=== PATIENT | female | born 1995 | race African-American/Black ===

== ENCOUNTER 2017-04-11 21:16 | Emergency (ER) | payer MEDICAID ==
[~2017-04-11] VITALS: Ht 167.6 cm; Wt 121.0 kg
[2017-04-11 21:24] VITALS: BP 134/78; PULSE 68; RESP 16; TEMP 98.8; O2SAT 99
[2017-04-11] MEDS ORDERED: AMOXICILLIN/CLAVULANATE K 875 MG TAB PO ONE ×2 (22:45)
[2017-04-11] MEDS ORDERED: AUGM875T3 PO ×2 (22:59)
--- NOTE | 2017-04-11 23:00 | PD ---
HPI Chief Complaint: ENT Complaint Time Seen by Provider: 22:17 Travel History International Travel<30 days: No Contact w/Intl Traveler<30days: No Traveled to known affect area: No History of Present Illness HPI 21-year-old female presents to emergency room complaints of sore throat and foreign body sensation for the past 3 days. Reports no fever/chills. Reports that she has been able to drink and eat like her normal self, denies any difficultly swallowing. Reports that she went to an urgent care center and was told that she had a sore throat due to a virus and was not given any antibiotics. Reports that she is not feeling any better and requests a second opinion. FORMERLY [facility], [facility] Past Medical History Immunizations Current: Yes Tetanus Vaccination: Unknown Influenza Vaccination: No ?: Unknown Social History Alcohol Use: No Tobacco Use: No Substance Use: No Allergies-Medications (Allergen,Severity, Reaction): Coded Allergies: No Known Allergies (Verified Allergy, Unknown, 04/11/17) Review of Systems General / Constitutional: No: Fever, Chills Eyes: No: Diploplia, Blurred Vision, Visual changes HENT: Positive: Sore Throat, No: Headaches, Neck Pain Cardiovascular: No: Chest Pain or Discomfort, Palpitations, Irregular Rhythm Respiratory: No: Cough, Shortness of Breath Gastrointestinal: No: Nausea, Vomiting, Diarrhea, Abdominal Pain, Constipation Genitourinary: No: Dysuria Musculoskeletal: No: Pain Skin: No Rash Neurologic: No: Weakness Psychiatric: No: Depression Endocrine: No: Polydipsia Hematologic/Lymphatic: No: Easy Bruising Physical Exam Narrative GENERAL: Well-nourished, well-developed patient. SKIN: Focused skin assessment warm/dry. HEAD: Normocephalic. EYES: No scleral icterus. No injection or drainage. THROAT: Patient with increased fullness to left tonsil, uvula midline and patent with no swelling, patient with no trismus or drooling NECK: Supple, trachea midline. No JVD or lymphadenopathy. CARDIOVASCULAR: Regular rate and rhythm without murmurs, gallops, or rubs. RESPIRATORY: Breath sounds equal bilaterally. No accessory muscle use. GASTROINTESTINAL: Abdomen soft, non-tender, nondistended. MUSCULOSKELETAL: No cyanosis, or edema. BACK: Nontender without obvious deformity. No CVA tenderness. Data Data Last Documented VS Vital Signs Date Time Temp Pulse Resp B/P (MAP) Pulse Ox O2 Delivery O2 Flow Rate FiO2 04/11/17 21:24 98.8 68 16 134/78 (96) 99 Room Air Orders Orders Amoxicil-Clavulanate (Augmentin) (04/11/17 22:45) MDM Medical Decision Making Medical Screen Exam Complete: Yes Emergency Medical Condition: Yes Medical Record Reviewed: Yes Interpretation(s) Vital Signs Date Time Temp Pulse Resp B/P (MAP) Pulse Ox O2 Delivery O2 Flow Rate FiO2 04/11/17 21:24 98.8 68 16 134/78 (96) 99 Room Air Differential Diagnosis Pharyngitis Narrative Course Patient with sore throat for the past 3 days, and to treat as pharyngitis and we 'll start her on antibiotics. Patient will follow-up with her primary care doctor and will return to the emergency room as needed. Diagnosis Primary Impression: Pharyngitis Qualified Codes: J02.9 - Acute pharyngitis, unspecified Patient Instructions: General Instructions Additional Instructions: Please follow up with your primary care doctor in 2-3 days Return to the ER if symptoms worsen or progress Return to the ER as needed Please take all medications as prescribed Med/Other Pt SpecificInfo: Prescription(s) given Scripts Amoxicillin-Clavulanate (Augmentin) 875-125 Mg Tab 1 TAB PO BID for Infection for 7 Days, #14 TAB 0 Refills Prov: Jory Remy DO 04/11/17 Disposition: 01 DISCHARGE HOME Condition: Stable Jory Remy DO Apr 11, 2017 23:00
[2017-04-11 23:09] VITALS: BP 132/74; PULSE 72; RESP 14; O2SAT 98
== END 2017-04-11 23:11 | disposition home or self-care (01) ==
LOC: NEPD 21:16
DX: J02.9 Acute pharyngitis, unspecified (principal)
CPT/HCPCS: 99283

== ENCOUNTER 2017-04-18 20:28 | Emergency (ER) | payer MEDICAID ==
[~2017-04-18] VITALS: Ht 167.6 cm; Wt 125.0 kg
[~2017-04-18 20:28] MED LIST: AUGM875T3 PO
[2017-04-18 20:32] VITALS: BP 134/75; PULSE 102; RESP 18; TEMP 98.6; O2SAT 97
--- NOTE | 2017-04-18 20:45 | PD ---
HPI Chief Complaint: ENT Complaint Time Seen by Provider: 20:43 Travel History International Travel<30 days: No Contact w/Intl Traveler<30days: No Traveled to known affect area: No History of Present Illness HPI 21-year-old female presents for evaluation of a tender lymph node on the right side of her neck. She first noticed 1 week ago. It is mildly sore when palpated. She is currently being treated for pharyngitis, she is currently taking Augmentin; she has 6 tablets left. She reports that the sore throat is resolved. She denies fevers, chills, cough, sore throat. No other complaints. PFSH Past Medical History Immunizations Current: Yes ?: Not Social History Alcohol Use: No Tobacco Use: No Substance Use: No Allergies-Medications (Allergen,Severity, Reaction): Coded Allergies: No Known Allergies (Verified , 04/18/17) Reported Meds & Prescriptions Reported Meds & Active Scripts Active Augmentin (Amoxicillin-Clavulanate) 875-125 Mg Tab 1 Tab PO BID 7 Days Review of Systems Except as stated in HPI: all other systems reviewed are Neg Physical Exam Narrative GENERAL: Female in no acute distress SKIN: Warm and dry. HEAD: Atraumatic. Normocephalic. EYES: Pupils equal and round. No scleral icterus. No injection or drainage. ENT: No nasal bleeding or discharge. Mucous membranes pink and moist. NECK: Trachea midline. No JVD. Mildly tender right-sided anterior cervical lymphadenopathy. CARDIOVASCULAR: Regular rate and rhythm. No murmur appreciated. RESPIRATORY: No accessory muscle use. Clear to auscultation. Breath sounds equal bilaterally. Data Data Last Documented VS Vital Signs Date Time Temp Pulse Resp B/P (MAP) Pulse Ox O2 Delivery O2 Flow Rate FiO2 04/18/17 20:42 (94) 04/18/17 20:32 98.6 102 18 97 Orders Orders Ed Discharge Order (04/18/17 20:43) MDM Medical Decision Making Medical Screen Exam Complete: Yes Emergency Medical Condition: Yes Medical Record Reviewed: Yes Differential Diagnosis Reactive lymphadenopathy, abscess, lymphoma, Scratch disease, parotitis, mumps, infectious mononucleosis Narrative Course The patient has reactive lymphadenopathy secondary to her pharyngitis. She is stable for discharge. Diagnosis Primary Impression: Reactive lymphadenopathy Additional Instructions: Completely antibiotics as prescribed. Return for any emergent medical conditions. Med/Other Pt SpecificInfo: No Change to Meds Disposition: 01 DISCHARGE HOME Condition: Stable Stanley Swanson Apr 18, 2017 20:45
== END 2017-04-18 20:50 | disposition home or self-care (01) ==
LOC: PHEFT 20:28
DX: R59.1 Generalized enlarged lymph nodes (principal); J02.9 Acute pharyngitis, unspecified
CPT/HCPCS: 99281